=== PATIENT | female | born 1990 ===

== ENCOUNTER 2018-04-21 20:58 | Emergency (ER) | payer OTHER ==
[2018-04-21 21:12] VITALS: RESP 20; O2SAT 98
--- NOTE | 2018-04-21 21:21 | C.PDOC ---
History Of Present Illness 27 year old female presents to the ER with a complaint of upper quadrant abdominal pain for the past few days with vomiting and diarrhea today. Denies dysuria or hematuria. Chief Complaint (Nursing): Abdominal Pain History Per: Patient History/Exam Limitations: no limitations Onset/Duration Of Symptoms: Hrs Current Symptoms Are (Timing): Still Present Location Of Pain/Discomfort: Other (Upper quadrants) Quality Of Discomfort: Unable To Describe Associated Symptoms: Vomiting, Diarrhea. denies: Urinary Symptoms Exacerbating Factors: None Alleviating Factors: None Recent travel outside of the [place]: No Abnormal Vaginal Bleeding: No Past Medical History Reviewed: Historical Data, Nursing Documentation, Vital Signs Vital Signs: Last Vital Signs Temp 98.2 F 04/21/18 21:08 Pulse 96 H 04/21/18 21:08 Resp 20 04/21/18 21:08 BP 99/69 L 04/21/18 21:08 Pulse Ox 98 04/21/18 21:08 - Medical History PMH: Depression Family History: States: Unknown Family Hx - Social History Hx Alcohol Use: No Hx Substance Use: No Review Of Systems Constitutional: Negative for: Fever, Chills Cardiovascular: Negative for: Chest Pain, Palpitations Respiratory: Negative for: Cough, Shortness of Breath Gastrointestinal: Positive for: Vomiting, Abdominal Pain, Diarrhea Genitourinary: Negative for: Dysuria, Hematuria Neurological: Negative for: Weakness, Numbness Physical Exam - Physical Exam Appears: Non-toxic Skin: Normal Color, Warm, Dry Head: Atraumatic, Normacephalic Eye(s): bilateral: Normal Inspection Oral Mucosa: Moist Neck: Normal, Supple Chest: Symmetrical, No Tenderness Cardiovascular: Rhythm Regular Respiratory: Normal Breath Sounds, No Rales, No Rhonchi, No Wheezing Gastrointestinal/Abdominal: Soft, Tenderness (Epigastric), No Guarding, No Rebound Back: No CVA Tenderness Neurological/Psych: Oriented x3, Normal Speech ED Course And Treatment - Laboratory Results Result Diagrams: 04/21/18 21:27 04/21/18 21:27 O2 Sat by Pulse Oximetry: 98 (Room air) Pulse Ox Interpretation: Normal Progress Note: Blood work and urinalysis ordered. Bentyl, pepcid, toradol, zofran, and IV fluids administered. Disposition Counseled Patient/Family Regarding: Diagnosis - Disposition Referrals: [facility] at [facility] [Outside] Disposition: HOME/ ROUTINE Disposition Time: 00:12 Condition: STABLE Prescriptions: Dicyclomine [Bentyl] 10 mg PO TID PRN #12 cap PRN Reason: Diarrhea Famotidine [Pepcid] 20 mg PO BID #20 tab Instructions: Gastritis (DC), Viral Gastroenteritis, Adult (DC), Hypokalemia (DC) Forms: [facility] ([place]) - POA Present On Arrival: None - Clinical Impression Clinical Impression: Abdominal pain, Gastritis, Gastroenteritis, Hypokalemia - Scribe Statement The provider has reviewed the documentation as recorded by the Scribcarissa Meier All medical record entries made by the Mariannibcarissa were at my direction and personally dictated by me. I have reviewed the chart and agree that the record accurately reflects my personal performance of the history, physical exam, medical decision making, and the department course for this patient. I have also personally directed, reviewed, and agree with the discharge instructions and disposition.
[2018-04-21] MEDS ORDERED: Sodium Chloride 0.9% 1,000 ML IV ONE (21:22)
--- NOTE | 2018-04-21 21:24 | C.PDOC ---
Chief Complaint (Nursing): Abdominal Pain Past Medical History Vital Signs: Last Vital Signs Temp 98.2 F 04/21/18 21:08 Pulse 96 H 04/21/18 21:08 Resp 20 04/21/18 21:08 BP 99/69 L 04/21/18 21:08 Pulse Ox 98 04/21/18 21:08 - Medical History PMH: Depression - Social History Hx Alcohol Use: No Hx Substance Use: No ED Course And Treatment O2 Sat by Pulse Oximetry: 98 Disposition - Disposition
[2018-04-21 21:31] LABS: BASO % 0.2 % (0.0-2.0); EOS % 0.7 % (0.0-4.0); HEMOGLOBIN 12.1 g/dL (11.0-16.0); LYMPH # 0.5 K/uL (1.0-4.3); LYMPH % 8.7 % (20.0-40.0); MEAN CELL VOLUME 88.6 fL (81.0-99.0); MEAN CORPUSCULAR HEMOGLOBIN 29.6 pg (27.0-31.0); MEAN CORPUSCULAR HGB CONC 33.4 g/dL (33.0-37.0); MEAN PLATELET VOLUME 8.1 fL (7.2-11.7); MONO # 0.1 K/uL (0.0-0.8); MONO % 1.8 % (0.0-10.0); NEUT # 4.9 K/uL (1.8-7.0); NEUT % 88.6 % (50.0-75.0); PLATELET COUNT 146 K/uL (130-400); RED CELL DISTRIBUTION WIDTH 13.2 % (11.5-14.5); WHITE BLOOD COUNT 5.5 K/uL (4.8-10.8)
[2018-04-21 21:47] LABS: ALB/GLOB RATIO 1.2 (1.0-2.1); ALBUMIN 3.8 g/dL (3.5-5.0); ALT/SGPT 24 U/L (9-52); AST/SGOT 19 U/L (14-36); BLOOD UREA NITROGEN 11 mg/dL (7-17); CALCIUM 8.5 mg/dl (8.6-10.4); GFR NON-AFRICAN AMERICAN > 60; LIPASE 67 U/L (23-300)
[2018-04-21 22:02] LABS: BANDS 1 % (0-2); MONOCYTE 1 % (0-10); NEUTROPHIL 89 % (50-75); PLATELET ESTIMATE NORMAL (NORMAL); TOTAL CELLS COUNTED 100
[2018-04-21 22:03] LABS: LYMPHOCYTE 9 % (20-40)
[2018-04-21 23:04] LABS: HCG,QUALITATIVE URINE NEGATIVE (NEGATIVE)
[2018-04-21 23:09] LABS: SQUAMOUS EPITHIAL < 1 /hpf (0-5); URINE BACTERIA RARE (<OCC); URINE BILIRUBIN NEGATIVE (NEGATIVE); URINE BLOOD NEGATIVE (NEGATIVE); URINE CLARITY Clear (Clear); URINE COLOR Yellow (YELLOW); URINE GLUCOSE (UA) NORMAL (Normal); URINE LEUKOCYTE ESTERASE NEG Leu/uL (Negative); URINE PROTEIN NEGATIVE (NEGATIVE); URINE UROBILINOGEN NORMAL mg/dL (0.2-1.0)
[2018-04-22] MEDS ORDERED: Potassium Chloride 10 mEq ER Tab PO ONE (00:36)
[2018-04-22] MEDS ORDERED: Potassium Chloride 10 mEq ER Tab PO STA (00:45)
[2018-04-22 01:08] VITALS: BP 90/60; PULSE 88; TEMP 98.9
[2018-04-22] MEDS ORDERED: Potassium Chloride 10 mEq ER Tab PO SCH (08:00)
== END 2018-04-22 01:09 | disposition home or self-care (01) ==
LOC: C.ER 20:58
DX: K29.70 Gastritis, unspecified, without bleeding (principal); K52.9 Noninfective gastroenteritis and colitis, unspecified; E87.6 Hypokalemia; R10.13 Epigastric pain
CPT/HCPCS: 80053; 81001; 83690; 84703; 85025; 96372; 96374; 96375; 99285; J0500; J1885; J2405; J7030